=== PATIENT | male | born 1980 | race Asian ===

== ENCOUNTER 2017-08-09 18:45 | Emergency (ER) | payer OTHER ==
[~2017-08-09] VITALS: Ht 195.6 cm; Wt 87.9 kg
[2017-08-09 18:55] VITALS: BP 138/78
[2017-08-09] MEDS ORDERED: LIDOCAINE 2%, 20ML SQ ONE (19:30)
[2017-08-09] MEDS ORDERED: BACITRACIN ZINC OINT 500U/GM, 0.9 GM ONE (19:40)
== END 2017-08-09 19:45 | disposition home or self-care (01) ==
LOC: ED 19:40
DX: S61.216A Laceration without foreign body of right little finger without damage to nail, initial encounter (principal); W26.8XXA Contact with other sharp object(s), not elsewhere classified, initial encounter; Y93.G1 Activity, food preparation and clean up; Y92.89 Other specified places as the place of occurrence of the external cause; Y99.8 Other external cause status
CPT/HCPCS: 12001; 99283